=== PATIENT | female | born 1970 | race Caucasian/White ===

== ENCOUNTER 2018-09-05 13:49 | Emergency (ER) | payer OTHER ==
--- NOTE | 2018-09-05 14:30 | ED ---
General Adult HPI - General Chief complaint: Back Pain/Injury Stated complaint: back pain Time Seen by Provider: 09/05/18 14:06 Source: patient, EMS, RN notes reviewed Mode of arrival: EMS Limitations: no limitations - History of Present Illness Initial comments: 48-year-old female presents to the emergency department for a chief complaint of right lower extremity pain 2 days. Patient states she has had sciatic pain in the past and this is consistent but somewhat worse than normal. She describes it as a sharp shooting pain down the right leg. She states movement exacerbates her pain. Patient denies any weakness in the right leg. She denies any bladder or bowel changes. She denies any numbness or tingling of the groin her buttock. Patient states she is able to ambulate at home. Patient states she called EMS because she felt she could not drive using her right leg to take her daughter to work because of the pain and pressure from sitting on the right buttock. Patient denies a history of IV drug abuse, fevers or chills, chronic steroid use.Patient has no other complaints at this time including shortness of breath, chest pain, abdominal pain, nausea or vomiting, headache, or visual changes. - Related Data Home Medications Medication Instructions Recorded Confirmed Albuterol Sulfate [Proair Hfa] 2 puff INHALATION RT-Q6H PRN 09/05/18 09/05/18 Cholecalciferol (Vitamin D3) 10,000 unit PO DAILY 09/05/18 09/05/18 [Vitamin D3] Levothyroxine Sodium [Synthroid] 200 mcg PO DAILY 09/05/18 09/05/18 Loratadine [Claritin] 10 mg PO DAILY 09/05/18 09/05/18 Montelukast [Singulair] 10 mg PO DAILY 09/05/18 09/05/18 Triamterene-Hctz 37.5-25Mg 1 cap PO DAILY 09/05/18 09/05/18 [Dyazide 37.5-25 Capsule] Previous Rx's Medication Instructions Recorded Ibuprofen [Motrin] 600 mg PO Q8HR PRN #20 tab 09/05/18 predniSONE 50 mg PO DAILY #5 tablet 09/05/18 Allergies Allergy/AdvReac Type Severity Reaction Status Date / Time No Known Allergies Allergy Verified 09/05/18 14:16 Review of Systems ROS Statement: Those systems with pertinent positive or pertinent negative responses have been documented in the HPI. ROS Other: All systems not noted in ROS Statement are negative. Past Medical History Past Medical History: Cancer, Hypertension, Thyroid Disorder History of Any Multi-Drug Resistant Organisms: None Reported Past Surgical History: Section Past Psychological History: No Psychological Hx Reported Smoking Status: Never smoker Past Alcohol Use History: None Reported Past Drug Use History: Marijuana General Exam Limitations: no limitations General appearance: alert, in no apparent distress Head exam: Present: atraumatic, normocephalic, normal inspection Eye exam: Present: normal appearance, PERRL, EOMI. Absent: scleral icterus, conjunctival injection, periorbital swelling ENT exam: Present: normal exam, mucous membranes moist Neck exam: Present: normal inspection, full ROM. Absent: tenderness, meningismus, lymphadenopathy Respiratory exam: Present: normal lung sounds bilaterally. Absent: respiratory distress, wheezes, rales, rhonchi, stridor Cardiovascular Exam: Present: regular rate, normal rhythm, normal heart sounds. Absent: systolic murmur, diastolic murmur, rubs, gallop, clicks Extremities exam: Present: normal capillary refill (Capillary refill less than 2 seconds and DP pulses 2+ in lower extremities bilaterally.), other (Sensation intact in lower extremities bilaterally.) Back exam: Present: tenderness (Tenderness of the right buttock by sciatic notch. Minimal low back tenderness along the lumbar and paraspinal areas.) Neurological exam: Present: alert, oriented X3, CN II-XII intact Psychiatric exam: Present: normal affect, normal mood Course Vital Signs 09/05/18 13:59 Temperature 98.0 F Pulse Rate 65 Respiratory 18 Rate Blood Pressure 124/86 O2 Sat by Pulse 100 Oximetry Medical Decision Making - Medical Decision Making 48-year-old female presents to the emergency determine for a chief complaint of right buttock and right lower external he pain. Patient states the pain shoots from her right low back down her right buttock and into her right leg. She describes it as a sharp pain consistent with previous sciatic pain. She states it is somewhat worse this time. She denies bladder or bowel changes, numbness or tingling in the greater buttock, or any lower extremity weakness. Neurovascular intact in right lower extremity. Patient ambulatory in the emergency department with a normal gait. Vitals are stable and patient is afebrile. Patient was given Toradol and steroids which did help with her pain. I did offer patient some morphine as well which she did agree to have and a small amount. Patient is getting a ride home. Patient refuses any imaging today in the emergency department. She will follow-up with Dr. Murray and is aware she may need an MRI. She'll be given a prescription for Motrin and steroids. She is not diabetic. She will return here if she has any worsening symptoms which she is aware of. Disposition Clinical Impression: Sciatic pain Disposition: HOME SELF-CARE Condition: Good Instructions: Sciatica (ED) Additional Instructions: Please take Motrin and Tylenol for pain. Please take steroid as directed. Please follow up with primary care and orthopedics in one to 2 days. Please return to the emergency department if you have any worsening symptoms. Prescriptions: Ibuprofen [Motrin] 600 mg PO Q8HR PRN #20 tab PRN Reason: Pain predniSONE 50 mg PO DAILY #5 tablet Is patient prescribed a controlled substance at d/c from ED?: No Referrals: Sly Mendoza MD [Primary Care Provider] - 1-2 days Time of Disposition: 15:25
[2018-09-05] MEDS ORDERED: KETOROLAC 30 MG/ML 1 ML VIAL IM STA (14:49)
[2018-09-05] MEDS ORDERED: methylPREDNISolone SOD SUCCI 125 MG/2 ML VIAL IM ONE (14:49)
[2018-09-05] MEDS ORDERED: MORPHINE SULFATE 4 MG/ML SYRINGE IM STA (15:24)
[2018-09-05 16:08] VITALS: BP 136/86; PULSE 80; RESP 16; TEMP 98.2
== END 2018-09-05 16:07 | disposition home or self-care (01) ==
LOC: EC 13:49
DX: M54.31 Sciatica, right side (principal); I10 Essential (primary) hypertension; Z79.899 Other long term (current) drug therapy
CPT/HCPCS: 99283; 96372 ×3; J2270; J2930; J1885

== ENCOUNTER → 2025-01-05 | Outpatient (CLI) | payer BC ==
--- NOTE | 2025-01-06 08:45 | MM ---
Reason for Exam: Screening (asymptomatic). Last mammogram was performed 7 year(s) and 11 month(s) ago. Patient History: Menarche at age 12. First Full-Term at age 20. Left ovary removed at age 44. Right ovary removed at age 44. Hysterectomy at age 44. Hormonal Contraceptives for 1 year from age 18 until age 19. Maternal aunt had breast cancer. Risk Values: Brielle 5 year model risk: 1.1%. NCI Lifetime model risk: 7.4%. Prior Study Comparison: 12/12/2009 Bilateral Diagnostic Mammogram, [facility]. 11/22/2014 Bilateral MG 3D screening mammo w/cad, Unknown. Tissue Density: There are scattered areas of fibroglandular density. Findings: Analyzed By CAD. Palpable marker far posterior superior left breast. No discrete mass or other abnormality is seen here. A few benign boil cyst calcifications on the right. Small area of asymmetric density right MLO view centrally at the middle depth does not persist on the second MLO view compatible with superimposition shadow. No significant change from prior exams. Overall Assessment: Incomplete: need additional imaging evaluation, BI-RAD 0 Management: Diagnostic Breast Ultrasound of the left breast. Targeting the patient's palpable site [facility], , 01/06/2025 8:42 AM. Electronically signed and approved by: Brian Ashby M.D. Radiologist
== END | disposition home or self-care (01) ==
LOC: RADMAMWWP 15:56
PROVIDERS: ATTEND Family Medicine
DX: Z12.31 Encounter for screening mammogram for malignant neoplasm of breast (principal); R92.323 Mammographic fibroglandular density, bilateral breasts; Z80.3 Family history of malignant neoplasm of breast
CPT/HCPCS: 77063; 77067

== ENCOUNTER → 2025-01-15 | Outpatient (CLI) | payer BC ==
--- NOTE | 2025-01-15 07:54 | USB ---
Reason for Exam: Clinical finding. Patient History: Menarche at age 12. First Full-Term at age 20. Left ovary removed at age 44. Right ovary removed at age 44. Hysterectomy at age 44. Hormonal Contraceptives for 1 year from age 18 until age 19. Maternal aunt had breast cancer. Risk Values: Brielle 5 year model risk: 1.1%. NCI Lifetime model risk: 7.4%. Technique: Method: Targeted. Prior Study Comparison: 11/22/2014 Bilateral MG 3D screening mammo w/cad, Unknown. 02/28/2017 Bilateral MG 3D screening mammo w/cad, Unknown. 01/05/2025 Bilateral MG 3D screening mammo w/cad, [facility]. Findings: The area of palpable concern of the left breast, the axilla of the left breast and the retroareolar of the left breast were scanned. No solid or cystic masses are identified. Manage clinically with regards to palpable abnormality. Overall Assessment: Negative, BI-RAD 1 Management: Screening Mammogram of both breasts in 1 year. A clinical breast exam by your physician is recommended on an annual basis and results should be correlated with mammographic findings. This exam should not preclude additional follow-up of suspicious palpable abnormalities. Results were given to the patient verbally at the time of exam. [facility], , 01/15/2025 7:51 AM. Electronically signed and approved by: Andrey Lozano M.D. Radiologis
== END | disposition home or self-care (01) ==
LOC: RADUSWWP 07:10
PROVIDERS: ATTEND Family Medicine
DX: R92.8 Other abnormal and inconclusive findings on diagnostic imaging of breast (principal); Z80.3 Family history of malignant neoplasm of breast; Z92.0 Personal history of contraception